=== PATIENT | female | born 1975 | race Caucasian/White ===

== ENCOUNTER 2017-06-21 21:49 | Emergency (ER) | payer MEDICAID ==
[2017-06-21 21:49] VITALS: BMI 36.4
[2017-06-21 22:02] VITALS: O2SAT 100
--- NOTE | 2017-06-21 22:06 | ED PDOC ---
HPI: Abdomen Time Seen by Provider: 06/21/17 22:15 Chief Complaint (Nursing): Abdominal Pain Chief Complaint (Provider): Abdominal pain, diarrhea History Per: Patient History/Exam Limitations: no limitations Onset/Duration Of Symptoms: Days (since friday) Outside of [place] travel?: No Current Symptoms Are (Timing): Still Present Severity: Moderate Location Of Pain/Discomfort: Diffuse Quality Of Discomfort: Cramping Associated Symptoms: Diarrhea. denies: Fever, Chills Exacerbating Factors: Food Last Bowel Movement: Today Additional History Per: Patient Additional Complaint(s): 41 y/o female with history of Type 2 diabetes presenting with complaints of abdominal pain since Friday, vomited on once, did not see her PCP because she thought it was just something viral but then between yesterday and today she has been having diarrhea every 30minutes. states she has not taken her medications since . had some bread this morning and mashed plantains in an attempt to stop the diarrhea but had another episode immediately after eating it. denies any associated fever, chills, dizziness, headaches. Abnormal Vaginal Bleeding: No Past Medical History Vital Signs: Last Vital Signs Temp 98.4 F 06/21/17 21:58 Pulse 102 H 06/21/17 21:58 Resp 22 06/21/17 21:58 BP 140/85 06/21/17 21:58 Pulse Ox 100 06/21/17 23:56 - Medical History PMH: Arthritis, Diabetes Denies: Chronic Kidney Disease - Family History Family History: States: Unknown Family Hx - Home Medications Home Medications: Ambulatory Orders Medication Instructions Recorded Metformin HCl 1,000 mg PO BID 01/17/15 Acetaminophen [Tylenol Extra 1,000 mg PO Q8H PRN 04/10/16 Strength] Clindamycin [Cleocin] 300 mg PO Q8H 04/10/16 Ergocalciferol (Vitamin D2) 50,000 unit PO QWK 04/10/16 [Vitamin D2] Glipizide [Glipizide Xl] 10 mg PO DAILY 04/10/16 Linagliptin [Tradjenta] 5 mg PO DAILY 04/10/16 Lysine 1 tab PO DAILY 04/10/16 Melatonin 5 mg PO HS 04/10/16 Vitamin A 1 cap PO DAILY 04/10/16 Zinc Sulfate [Orazinc] 1 cap PO DAILY 04/10/16 Cyclobenzaprine [Cyclobenzaprine 10 mg PO TID #18 tab 09/06/16 HCl] Lidocaine 5% [Lidoderm] 1 patch TD DAILY #10 patch 09/06/16 traMADol [Ultram] 50 mg PO QID #16 tab 09/06/16 Dicyclomine [Bentyl] 20 mg PO Q12 PRN #20 tab 06/22/17 - Allergies Allergies/Adverse Reactions: Allergies Allergy/AdvReac Type Severity Reaction Status Date / Time ibuprofen [From Advil] Allergy VOMITING Verified 06/21/17 22:02 Penicillins Allergy SHORTNESS Verified 09/06/16 11:33 OF BREATH Review of Systems ROS Statement: Except As Marked, All Systems Reviewed And Found Negative Physical Exam - Reviewed Vital Signs Reviewed: Yes - Physical Exam Appears: Positive for: Well, Non-toxic, No Acute Distress Head Exam: Positive for: NORMOCEPHALIC Skin: Positive for: Normal Color, Dry Eye Exam: Positive for: Normal appearance, EOMI, PERRL Cardiovascular/Chest: Positive for: Regular Rate, Rhythm, Chest Non Tender. Negative for: Edema, Murmur Respiratory: Positive for: Normal Breath Sounds. Negative for: Decreased Breath Sounds, Accessory Muscle Use, Wheezing Gastrointestinal/Abdominal: Positive for: Bowel Sounds, Soft, Tenderness ( tenderness mainly in RUQ and epigastric region ) Extremity: Positive for: Normal ROM. Negative for: Tenderness, Pedal Edema, Calf Tenderness Neurologic/Psych: Positive for: Alert, bobbin fixer II-XII, Oriented - Laboratory Results Result Diagrams: 06/21/17 23:10 06/21/17 22:30 Urine dip results: Positive for: Blood, Protein. Negative for: Leukocyte Esterase, Nitrate, Ketones, Glucose, Bilirubin - ECG O2 Sat by Pulse Oximetry: 100 - Progress ED Course And Treament: ekg, cbc, cmp,lipase IVF, bentyl RUQ ultrasound Re-evaluation Time: 12:40 Condition: Improved Medical Decision Making Medical Decision Making: urine -negative ultrasound negative labs unremarkable will d/c home with symptomatic treatment Disposition - Clinical Impression Clinical Impression: Gastroenteritis - Patient ED Disposition Is Patient to be Admitted: No - Disposition Disposition: Routine/Home Disposition Time: 01:20 Condition: STABLE Prescriptions: Dicyclomine [Bentyl] 20 mg PO Q12 PRN #20 tab PRN Reason: abdominal pain/diarrhea Instructions: Gastroenteritis (ED) Forms: [facility] ([place])
[2017-06-21] MEDS ORDERED: Sodium Chloride 0.9% 1,000 ML IV STA (22:16)
[2017-06-21 22:54] LABS: ALB/GLOB RATIO 1.1 (1.0-2.1); ALKALINE PHOSPHATASE 87 U/L (38-126); ALT/SGPT 53 U/L (9-52); AST/SGOT 36 U/L (14-36); BILIRUBIN,TOTAL 0.4 mg/dl (0.2-1.3); BLOOD UREA NITROGEN 11 mg/dl (7-17); CALCIUM 8.1 mg/dL (8.4-10.2); CARBON DIOXIDE 23 mmol/L (22-30); CHLORIDE 102 mmol/L (98-107); GFR AFRICAN-AMERICAN > 60; GLUCOSE,RANDOM 183 mg/dL (65-105); LIPASE 113 U/L (23-300); POTASSIUM 3.8 MMOL/L (3.6-5.0); SODIUM 136 mmol/l (132-148); TOTAL PROTEIN 7.1 G/DL (6.3-8.2)
[2017-06-21 23:22] LABS: BASO # 0.1 K/uL (0.0-0.2); BASO % 0.7 % (0.0-2.0); EOS # 0.2 K/uL (0.0-0.7); EOS % 1.6 % (0.0-4.0); LYMPH % 26.5 % (20.0-40.0); MEAN CELL VOLUME 83.8 fl (81.0-99.0); MEAN CORPUSCULAR HEMOGLOBIN 27.2 pg (27.0-31.0); MEAN CORPUSCULAR HGB CONC 32.5 g/dL (33.0-37.0); MEAN PLATELET VOLUME 10.3 fl (7.2-11.7); MONO # 1.2 K/uL (0.0-0.8); MONO % 10.8 % (0.0-10.0); NEUT # 6.9 K/uL (1.8-7.0); NEUT % 60.4 % (50.0-75.0); RED CELL DISTRIBUTION WIDTH 14.1 % (11.5-14.5); WHITE BLOOD COUNT 11.3 K/uL (4.8-10.8)
[2017-06-22 00:04] LABS: RBC URINE 10 /hpf (0-3); URINE BACTERIA OCC (<OCC); URINE BILIRUBIN NEGATIVE (NEGATIVE); URINE BLOOD MODERATE (NEGATIVE); URINE COLOR YELLOW (YELLOW); URINE GLUCOSE (UA) NEG (Normal); URINE KETONE NEGATIVE (NEGATIVE); URINE LEUKOCYTE ESTERASE NEG Leu/uL (Negative); URINE PROTEIN NEGATIVE (NEGATIVE); URINE UROBILINOGEN 0.2-1.0 mg/dL (0.2-1.0)
--- NOTE | 2017-06-22 00:46 | US ---
EXAM: US Abdomen Ltd Other EXAM DATE/TIME: 06/21/2017 10:17 PM CLINICAL HISTORY: 41 years old, female; Pain; Abdominal pain; Generalized; Additional info: Ruq pain TECHNIQUE: Real-time ultrasound of the abdomen ltd other with image documentation. COMPARISON: CT - ABD PELVIS W/O PO OR IV CONT 01/10/2016 6:50:36 PM FINDINGS: There is a negative sonographic Hong's sign per soil technologist. No gallstones. No pericholecystic fluid. The gallbladder wall measures 2.8 mm which is within normal limits. The common bile duct measures 4.5 mm which is within normal limits. The liver is normal. The visualized pancreas is normal. No right hydronephrosis. The right kidney measures 10 cm in length. The visualized portions of the aorta are non-aneurysmal. IMPRESSION: No acute findings.
[2017-06-22 01:25] VITALS: BP 139/81; PULSE 82; RESP 18; TEMP 98.2
--- NOTE | 2017-06-23 11:04 | CARD ---
APPROVED REPORT EKG Measurement Heart [id number] <Conclusion> Normal sinus rhythm Normal ECG
== END 2017-06-22 01:35 | disposition home or self-care (01) ==
LOC: H.ER 21:49
DX: K52.9 Noninfective gastroenteritis and colitis, unspecified (principal); E11.9 Type 2 diabetes mellitus without complications; Z88.0 Allergy status to penicillin
CPT/HCPCS: 76705; 80053; 81003; 81025; 83690; 85025; 93005; 99283; J7040

== ENCOUNTER 2017-07-16 12:41 | Observation (INO) | payer MEDICAID ==
[2017-07-16 12:41] VITALS: BMI 36.4
[2017-07-16 13:02] VITALS: RESP 16; TEMP 98; O2SAT 100
[2017-07-16] MEDS ORDERED: Iohexol 240 (50 ml) PO ONE (13:21)
[2017-07-16] MEDS ORDERED: Sodium Chloride 0.9% 1,000 ML IV STA (13:23)
[2017-07-16 13:43] LABS: BASO % 0.3 % (0.0-2.0); EOS # 0.1 K/uL (0.0-0.7); EOS % 0.7 % (0.0-4.0); HEMATOCRIT 37.4 % (34.0-47.0); LYMPH # 2.4 K/uL (1.0-4.3); MEAN CELL VOLUME 83.3 fl (81.0-99.0); MEAN CORPUSCULAR HEMOGLOBIN 26.8 pg (27.0-31.0); MEAN CORPUSCULAR HGB CONC 32.2 g/dL (33.0-37.0); MEAN PLATELET VOLUME 7.8 fl (7.2-11.7); MONO # 1.2 K/uL (0.0-0.8); MONO % 9.3 % (0.0-10.0); NEUT # 9.5 K/uL (1.8-7.0); NEUT % 71.7 % (50.0-75.0); NRBC % 0.1 % (0.0-0.0); RED CELL DISTRIBUTION WIDTH 14.2 % (11.5-14.5); WHITE BLOOD COUNT 13.2 K/uL (4.8-10.8)
[2017-07-16 13:52] LABS: ALB/GLOB RATIO 1.2 (1.0-2.1); ALKALINE PHOSPHATASE 144 U/L (38-126); ALT/SGPT 42 U/L (9-52); AST/SGOT 35 U/L (14-36); BILIRUBIN,TOTAL 0.3 mg/dl (0.2-1.3); BLOOD UREA NITROGEN 12 mg/dl (7-17); CALCIUM 8.4 mg/dL (8.4-10.2); CARBON DIOXIDE 24 mmol/L (22-30); CHLORIDE 102 mmol/L (98-107); GFR AFRICAN-AMERICAN > 60; GLUCOSE,RANDOM 111 mg/dL (65-105); LIPASE 116 U/L (23-300); SODIUM 139 mmol/l (132-148); TOTAL PROTEIN 7.3 G/DL (6.3-8.2)
[2017-07-16 13:54] LABS: POTASSIUM 4.2 MMOL/L (3.6-5.0)
[2017-07-16] MEDS ORDERED: Iohexol 240 (50 ml) ONE (14:03)
[2017-07-16 14:12] LABS: RBC URINE 37 /hpf (0-3); URINE BACTERIA OCC (<OCC); URINE BILIRUBIN NEGATIVE (NEGATIVE); URINE BLOOD LARGE (NEGATIVE); URINE COLOR YELLOW (YELLOW); URINE GLUCOSE (UA) NEG (Normal); URINE KETONE NEGATIVE (NEGATIVE); URINE LEUKOCYTE ESTERASE SMALL Leu/uL (Negative); URINE PROTEIN 100 mg/dL (NEGATIVE); URINE UROBILINOGEN 0.2-1.0 mg/dL (0.2-1.0); WBC URINE 19 /hpf (0-5)
--- NOTE | 2017-07-16 14:47 | ED PDOC ---
HPI: General Adult Time Seen by Provider: 07/16/17 13:07 Chief Complaint (Nursing): Abdominal Pain History Per: Patient Additional Complaint(s): Pt. states for the past 5 weeks she's had constant non-bloody watery diarrhea. States stools have been dark in color. Further states that initially had vomiting which then resolved up until yesterday. Also states she was seen in ED on 06/21/17 and had blood work done and was dc'd with jose. She f/u with Dr. Brantley yesterday who prescribed her Flagyl which she has yet to take. Denies fever, recent travel, hematemesis, BRBPR, sick contacts, previous surgery, hx of GI bleed, weakness. Past Medical History Reviewed: Historical Data, Nursing Documentation, Vital Signs Vital Signs: Last Vital Signs Temp 98.0 F 07/16/17 12:59 Pulse 105 H 07/16/17 12:59 Resp 16 07/16/17 12:59 BP 122/79 07/16/17 12:59 Pulse Ox 100 07/16/17 15:54 - Medical History PMH: Arthritis, Diabetes, Gastritis Denies: Chronic Kidney Disease Other PMH: ovarian cyst - Family History Family History: States: No Known Family Hx - Home Medications Home Medications: Ambulatory Orders Medication Instructions Recorded Metformin HCl 1,000 mg PO BID 01/17/15 Acetaminophen [Tylenol Extra 1,000 mg PO Q8H PRN 04/10/16 Strength] Clindamycin [Cleocin] 300 mg PO Q8H 04/10/16 Ergocalciferol (Vitamin D2) 50,000 unit PO QWK 04/10/16 [Vitamin D2] Glipizide [Glipizide Xl] 10 mg PO DAILY 04/10/16 Linagliptin [Tradjenta] 5 mg PO DAILY 04/10/16 Lysine 1 tab PO DAILY 04/10/16 Melatonin 5 mg PO HS 04/10/16 Vitamin A 1 cap PO DAILY 04/10/16 Zinc Sulfate [Orazinc] 1 cap PO DAILY 04/10/16 Cyclobenzaprine [Cyclobenzaprine 10 mg PO TID #18 tab 09/06/16 HCl] Lidocaine 5% [Lidoderm] 1 patch TD DAILY #10 patch 09/06/16 traMADol [Ultram] 50 mg PO QID #16 tab 09/06/16 Dicyclomine [Bentyl] 20 mg PO Q12 PRN #20 tab 06/22/17 - Allergies Allergies/Adverse Reactions: Allergies Allergy/AdvReac Type Severity Reaction Status Date / Time ibuprofen [From Advil] Allergy VOMITING Verified 07/16/17 12:59 Penicillins Allergy SHORTNESS Verified 07/16/17 12:59 OF BREATH Review of Systems ROS Statement: Except As Marked, All Systems Reviewed And Found Negative Gastrointestinal: Positive for: Nausea, Vomiting, Abdominal Pain, Diarrhea, Melena Physical Exam - Reviewed Nursing Documentation Reviewed: Yes Vital Signs Reviewed: Yes - Physical Exam Appears: Positive for: Well, Non-toxic, No Acute Distress Head Exam: Positive for: ATRAUMATIC, NORMAL INSPECTION, NORMOCEPHALIC Skin: Positive for: Normal Color, Warm. Negative for: Rash Eye Exam: Positive for: EOMI, Normal appearance, PERRL ENT: Positive for: Normal ENT Inspection Neck: Positive for: Normal, Painless ROM Cardiovascular/Chest: Positive for: Regular Rate, Rhythm Respiratory: Positive for: CNT, Normal Breath Sounds Gastrointestinal/Abdominal: Positive for: Normal Exam, Bowel Sounds, Soft, Tenderness (mild epgiastric tenderness) Back: Positive for: Normal Inspection. Negative for: L CVA Tenderness, R CVA Tenderness Rectal: Positive for: Normal Exam, Rectal Tone Is: (intact), Stool Is Heme: ( negative), Other (Suyapa Ortega RN present as bottom scrubber). Negative for: Black Stool, Blood Streaked Stool Extremity: Positive for: Normal ROM Neurologic/Psych: Positive for: Alert, Oriented - Laboratory Results Result Diagrams: 07/16/17 13:38 07/16/17 13:38 - ECG O2 Sat by Pulse Oximetry: 100 ED OBSERVATION Discharge: Yes Date of observation admission: 07/16/17 Time of observation admission: 13:22 - Observation admission statement Patient is being placed in observation because:: abdominal pain, diarrhea - Progress Note Progress Note: 07/16/17 14:[address] abd/pelvis ordered. 07/16/17 16:15 Pt. in no distress. Reports symptoms are still present but have improved. 07/16/17 18:20 CT abd/pelvis: 1.9 cm probable right ovarian cyst. Prominent sub cm mesenteric lymph nodes, nonspecific On re-evaluation, pt. reports improvement in symptoms. Informed of results. Will give Cipro for UTI. F/U with GI. Disposition - Clinical Impression Clinical Impression: Mesenteric adenitis, UTI (urinary tract infection), Diarrhea - Patient ED Disposition Is Patient to be Admitted: No - Disposition Disposition: Routine/Home Disposition Time: 18:25 Condition: STABLE
[2017-07-16] MEDS ORDERED: Sodium Chloride 0.9% 50 ML IV ONE (16:56)
[2017-07-16] MEDS ORDERED: Iohexol 300 100 ML IJ ONE (16:56)
--- NOTE | 2017-07-16 17:53 | CT ---
PROCEDURE: CT Abdomen and Pelvis with oral and IV contrast. HISTORY: diarrhea x 5 weeks, epigastric pain COMPARISON: Limited abdominal ultrasound performed 06/21/17, CT abdomen and pelvis without contrast performed 01/10/16. TECHNIQUE: Contiguous axial images of the abdomen and pelvis. Oral and IV contrast was administered. Coronal and Sagittal reformats generated and reviewed. Contrast dose: 95 mL Omnipaque 300 Radiation dose: Total exam DLP = 1026.26 MGy-cm. This CT exam was performed using one or more of the following dose reduction techniques: Automated exposure control, adjustment of the mA and/or kV according to patient size, and/or use of iterative reconstruction technique. FINDINGS: LOWER THORAX: No visible consolidation, pleural effusion, or pneumothorax. LIVER: Unremarkable. GALLBLADDER AND BILE DUCTS: Unremarkable. PANCREAS: Unremarkable. SPLEEN: Unremarkable. ADRENALS: Unremarkable. KIDNEYS AND URETERS: The kidneys enhance symmetrically. No hydronephrosis or obstructing renal calculus. BLADDER: Mildly thick-walled urinary bladder, likely exaggerated by underdistention. REPRODUCTIVE: Uterus is present. 1.9 cm probable right ovarian cyst. APPENDIX: The appendix appears within normal limits of caliber. No secondary signs of acute appendicitis. BOWEL: The stomach is nondistended. The bowel loops appear within normal limits of caliber without evidence of intestinal obstruction. PERITONEUM: No significant free fluid. No definite free air. LYMPH NODES: Prominent sub cm mesenteric lymph nodes, nonspecific. VASCULATURE: No aortic aneurysm. BONES: Postsurgical changes of the lumbar spine. Degenerative changes. Scoliosis. OTHER FINDINGS: None. IMPRESSION: 1.9 cm probable right ovarian cyst. Pelvic ultrasound may be considered if indicated. Prominent sub cm mesenteric lymph nodes, nonspecific. Correlate clinically for possibility of mesenteric adenitis. Additional incidental findings as above.
[2017-07-16 18:42] VITALS: BP 120/72; PULSE 88
== END 2017-07-16 18:42 | disposition home or self-care (01) ==
LOC: H.ER 12:41 → H.EROBSV 13:22
PROVIDERS: ADMIT Emergency Medicine; ATTEND Emergency Medicine
DX: I88.0 Nonspecific mesenteric lymphadenitis (principal); N39.0 Urinary tract infection, site not specified; R19.7 Diarrhea, unspecified; E11.9 Type 2 diabetes mellitus without complications; M19.90 Unspecified osteoarthritis, unspecified site; K29.70 Gastritis, unspecified, without bleeding; N83.209 Unspecified ovarian cyst, unspecified side; Z88.0 Allergy status to penicillin; Z79.84 Long term (current) use of oral hypoglycemic drugs
CPT/HCPCS: 74177; 80053; 81003; 81025; 83690; 85025; 87040; 87086; 96361; 96374; 96375; 99282; G0378; J2405; J7040; Q9966; Q9967

== ENCOUNTER 2018-02-13 13:45 | Emergency (ER) | payer MEDICAID ==
[2018-02-13 13:46] VITALS: BMI 36.4
[2018-02-13 13:52] VITALS: BP 118/76; PULSE 82; RESP 18; TEMP 98; O2SAT 96
--- NOTE | 2018-02-13 14:33 | ED PDOC ---
Lower Extremity Pain/Injury Time Seen by Provider: 02/13/18 13:53 Chief Complaint (Nursing): Headache Chief Complaint (Provider): lower extremity pain History Per: Patient History/Exam Limitations: no limitations Onset/Duration Of Symptoms: Persistent (x6 days) Current Symptoms Are (Timing): Still Present Additional Complaint(s): 42 year old female with medical history of diabetes and anemia, presents to the emergency department with a complaint of persistent left leg pain associated with right ankle cramping radiating to her right calf ongoing for 6 days. Patient states she has been experiencing urine frequency, dysuria, right-sided flank pain and a gradual onset of headache for 1 week, in which, she was diagnosed with a UTI at an Urgent Care in [place]. She further reports being prescribed Cipro and Pyridium but stopped taking both medications on 02/08/18 when she developed bilateral leg pain. She denies any fever, chills, head injury , abdominal pain, nausea, vomiting, shortness of breath, chest pain, palpitations, hemoptysis, history of DVT or PE. Of note, patient reports traveling by car for a duration of 1 1/2 hours to and from [place]. PMD: Raymundo Brantley MD Past Medical History Reviewed: Historical Data, Nursing Documentation, Vital Signs Vital Signs: Last Vital Signs Temp 98 F 02/13/18 13:49 Pulse 82 02/13/18 13:49 Resp 18 02/13/18 13:49 BP 118/76 02/13/18 13:49 Pulse Ox 96 02/13/18 13:49 - Medical History PMH: Anemia, Arthritis, Diabetes, Gastritis Denies: Chronic Kidney Disease - Family History Family History: States: Unknown Family Hx - Social History Current smoker - smoking cessation education provided: No Ex-Smoker (has not smoked in the last 12 months): Yes Alcohol: None Drugs: Denies - Home Medications Home Medications: Ambulatory Orders Medication Instructions Recorded Metformin HCl 1,000 mg PO BID 01/17/15 Acetaminophen [Tylenol Extra 1,000 mg PO Q8H PRN 04/10/16 Strength] Clindamycin [Cleocin] 300 mg PO Q8H 04/10/16 Ergocalciferol (Vitamin D2) 50,000 unit PO QWK 04/10/16 [Vitamin D2] Glipizide [Glipizide Xl] 10 mg PO DAILY 04/10/16 Linagliptin [Tradjenta] 5 mg PO DAILY 04/10/16 Lysine 1 tab PO DAILY 04/10/16 Melatonin 5 mg PO HS 04/10/16 Vitamin A 1 cap PO DAILY 04/10/16 Zinc Sulfate [Orazinc] 1 cap PO DAILY 04/10/16 Cyclobenzaprine [Cyclobenzaprine 10 mg PO TID #18 tab 09/06/16 HCl] Lidocaine 5% [Lidoderm] 1 patch TD DAILY #10 patch 09/06/16 traMADol [Ultram] 50 mg PO QID #16 tab 09/06/16 Dicyclomine [Bentyl] 20 mg PO Q12 PRN #20 tab 06/22/17 Atropine/Diphenoxylate [Lonox 2 tab PO Q8 PRN #20 tab 07/16/17 0.025 MG-2.5 MG] Ciprofloxacin [Cipro] 1 tab PO BID #14 tab 07/16/17 Fluconazole [Diflucan] 150 mg PO ONCE #1 tab 07/16/17 Fluconazole [Diflucan] 150 mg PO ONCE #1 tab 02/13/18 Nitrofurantoin Macrocrystals 100 mg PO BID #14 cap 02/13/18 [Macrobid] - Allergies Allergies/Adverse Reactions: Allergies Allergy/AdvReac Type Severity Reaction Status Date / Time ibuprofen [From Advil] Allergy VOMITING Verified 02/13/18 13:49 Penicillins Allergy SHORTNESS Verified 02/13/18 13:49 OF BREATH Review of Systems ROS Statement: Except As Marked, All Systems Reviewed And Found Negative Constitutional: Negative for: Fever, Chills Cardiovascular: Negative for: Chest Pain, Palpitations Respiratory: Negative for: Shortness of Breath, Hemoptysis Gastrointestinal: Negative for: Nausea, Vomiting, Abdominal Pain Genitourinary Female: Positive for: Dysuria, Frequency Musculoskeletal: Positive for: Back Pain (right flank), Leg Pain (right calf "cramping"), Foot Pain (right ankle) Neurological: Positive for: Headache. Negative for: Other (head injury) Physical Exam - Reviewed Nursing Documentation Reviewed: Yes Vital Signs Reviewed: Yes - Physical Exam Appears: Positive for: Non-toxic, No Acute Distress Head Exam: Positive for: ATRAUMATIC, NORMAL INSPECTION, NORMOCEPHALIC Skin: Positive for: Normal Color. Negative for: Rash Neck: Positive for: Normal, Painless ROM, Supple Cardiovascular/Chest: Positive for: Regular Rate, Rhythm. Negative for: Murmur Respiratory: Positive for: Normal Breath Sounds. Negative for: Decreased Breath Sounds, Wheezing, Respiratory Distress Pulses-Dorsalis Pedis (L): 2+ Pulses-Dorsalis Pedis (R): 2+ Gastrointestinal/Abdominal: Positive for: Normal Exam, Soft. Negative for: Tenderness Back: Positive for: R CVA Tenderness. Negative for: L CVA Tenderness Extremity: Positive for: Normal ROM (all joints of LE actively), Capillary Refill (<2 seconds bilaterally of LE). Negative for: Tenderness (achilles tendon bilaterally), Calf Tenderness (bilaterally), Swelling (achilles tendon bilaterally), Other ((-)Maryjo's or Ch's sign bilaterally) Neurologic/Psych: Positive for: Alert (x3), Oriented, Gait (steady, unassisted) . Negative for: Motor/Sensory Deficits - Laboratory Results Result Diagrams: 02/13/18 14:15 02/13/18 14:15 Urine POC: Negative - ECG O2 Sat by Pulse Oximetry: 96 (RA) Pulse Ox Interpretation: Normal Medical Decision Making Medical Decision Making: Initial Impression: Right-sided flank pain; UTI; B/L leg pain Initial Plan: * CT ABD/pelvis without contrast * CMP * CPK * Magnesium * Urine * CBC * Pepcid 20mg IVP * Toradol 30mg IVP * Blood culture * Urine C&S * UA * US duplex LE Time: 1449 --CT ABD/pelvis FINDINGS: LOWER THORAX: Unremarkable. LIVER: Unremarkable. No gross lesion or ductal dilatation. GALLBLADDER AND BILE DUCTS: Unremarkable. PANCREAS: Unremarkable. No gross lesion or ductal dilatation. SPLEEN: Unremarkable. ADRENALS: Unremarkable. No mass. KIDNEYS AND URETERS: 4 mm nonobstructive left lower pole calculus. No hydronephrosis. No solid mass. VASCULATURE: Unremarkable. No aortic aneurysm. BOWEL: Unremarkable. No obstruction. No gross mural thickening. APPENDIX: Unremarkable. Normal appendix. PERITONEUM: Unremarkable. No free fluid. No free air. LYMPH NODES: Unremarkable. No enlarged lymph nodes. BLADDER: Unremarkable. REPRODUCTIVE: Unremarkable. BONES: Thoracolumbar levoscoliosis, centered at L2 with unilateral right Farley wade. No acute fracture. OTHER FINDINGS: None. IMPRESSION: 4 mm nonobstructive left lower pole renal calculus. No obstructive uropathy or evidence of recently passed genitourinary calculus. Time: 1536 --US duplex LE FINDINGS: COMMON FEMORAL VEIN: Right CFV: Unremarkable. Left CFV: Unremarkable. SUPERFICIAL FEMORAL VEIN: Right SFV: Unremarkable. Left SFV: Unremarkable. POPLITEAL VEIN: Right Popliteal: Unremarkable. Left Popliteal: Unremarkable. POSTERIOR TIBIAL VEIN: Right PTV: Unremarkable. Left PTV: Unremarkable. OTHER FINDINGS: Nonspecific echogenic 1.5 x 1.0 x 1.3 cm avascular structure in the proximal/ mid left thigh subcutaneous fat. IMPRESSION: No evidence of deep venous thrombosis. Nonspecific echogenic 1.5 x 1.0 x 1.3 cm avascular structure in the proximal/ mid left thigh subcutaneous fat. 1555 On re-evaluation, pt. in no distress. Reports headache has improved along with pain in her legs. No CVA tenderness b/l. Informed of results and states she has no pain on her L side. Reports that she does see a urologist (does not remember name) q3 years because she has chronic blood in her urine. Has had cystoscopies in the past which were normal. Told that kidney stone is unlikely causing her pain as it is on the opposite side of her pain. Advised pt. to f/u with urologist for kidney stone. Pt. will be treated with Macrobid despite no nitrates or leuks in urine as she recently took Cipro and Pyridium and has DM. Agrees with plan. Scribe Attestation: Documented by Judy Dejesus, acting as a scribe for Hood Kee PA-C. Provider Scribe Attestation: All medical record entries made by the Scribe were at my direction and personally dictated by me. I have reviewed the chart and agree that the record accurately reflects my personal performance of the history, physical exam, medical decision making, and the department course for this patient. I have also personally directed, reviewed, and agree with the discharge instructions and disposition. Disposition - Clinical Impression Clinical Impression: Bilateral lower extremity pain, Low back pain - Patient ED Disposition Is Patient to be Admitted: No - Disposition Referrals: [facility] [Outside] Rakesh Moreno MD [Staff Provider] - Raymundo Brantley MD [Family Provider] - Disposition: Routine/Home Disposition Time: 16:02 Condition: IMPROVED Additional Instructions: Follow up Dr. Brantley or your urologist for further evaluation. Return to ED immediately if symptoms worsen. Prescriptions: Fluconazole [Diflucan] 150 mg PO ONCE #1 tab Nitrofurantoin Macrocrystals [Macrobid] 100 mg PO BID #14 cap Instructions: Low Back Pain in Adults, Urinary Tract Infection, Adult (DC) Forms: [facility] ([place]ux[place]ish) Print Language: KYRGYZ
--- NOTE | 2018-02-13 14:51 | CT ---
PROCEDURE: CT Abdomen and Pelvis without intravenous contrast HISTORY: R sided flank pain, UTI COMPARISON: None. TECHNIQUE: Contiguous images were obtained from the domes of the diaphragms to the upper thighs without the administration of intravenous contrast. Oral contrast was not administered. Radiation dose: Total exam DLP = 920.8 mGy-cm. This CT exam was performed using one or more of the following dose reduction techniques: Automated exposure control, adjustment of the mA and/or kV according to patient size, and/or use of iterative reconstruction technique. FINDINGS: LOWER THORAX: Unremarkable. LIVER: Unremarkable. No gross lesion or ductal dilatation. GALLBLADDER AND BILE DUCTS: Unremarkable. PANCREAS: Unremarkable. No gross lesion or ductal dilatation. SPLEEN: Unremarkable. ADRENALS: Unremarkable. No mass. KIDNEYS AND URETERS: 4 mm nonobstructive left lower pole calculus. No hydronephrosis. No solid mass. VASCULATURE: Unremarkable. No aortic aneurysm. BOWEL: Unremarkable. No obstruction. No gross mural thickening. APPENDIX: Unremarkable. Normal appendix. PERITONEUM: Unremarkable. No free fluid. No free air. LYMPH NODES: Unremarkable. No enlarged lymph nodes. BLADDER: Unremarkable. REPRODUCTIVE: Unremarkable. BONES: Thoracolumbar levoscoliosis, centered at L2 with unilateral right Farley wade. No acute fracture. OTHER FINDINGS: None. IMPRESSION: 4 mm nonobstructive left lower pole renal calculus. No obstructive uropathy or evidence of recently passed genitourinary calculus.
[2018-02-13 15:30] LABS: BASO % 0.3 % (0.0-2.0); EOS # 0.1 K/uL (0.0-0.7); EOS % 1.3 % (0.0-4.0); HEMOGLOBIN 11.8 g/dL (12.0-16.0); LYMPH # 2.2 K/uL (1.0-4.3); LYMPH % 23.5 % (20.0-40.0); MEAN CORPUSCULAR HEMOGLOBIN 29.6 pg (27.0-31.0); MEAN CORPUSCULAR HGB CONC 33.7 g/dL (33.0-37.0); MEAN PLATELET VOLUME 7.7 fl (7.2-11.7); MONO # 0.8 K/uL (0.0-0.8); MONO % 8.2 % (0.0-10.0); NEUT # 6.2 K/uL (1.8-7.0); NEUT % 66.7 % (50.0-75.0); NRBC % 0.1 % (0.0-0.0); RED CELL DISTRIBUTION WIDTH 14.8 % (11.5-14.5); WHITE BLOOD COUNT 9.3 K/uL (4.8-10.8)
[2018-02-13 15:33] LABS: MEAN CELL VOLUME 88.1 fl (81.0-99.0)
--- NOTE | 2018-02-13 15:37 | US ---
PROCEDURE: Bilateral lower extremity venous duplex Doppler. HISTORY: b/l lower leg pain COMPARISON: None available. TECHNIQUE: Bilateral common femoral, superficial femoral, popliteal and posterior tibial veins were evaluated. Flow was assessed with color Doppler, compressibility, assessment of phasic flow and augmentation response. FINDINGS: COMMON FEMORAL VEIN: Right CFV: Unremarkable. Left CFV: Unremarkable. SUPERFICIAL FEMORAL VEIN: Right SFV: Unremarkable. Left SFV: Unremarkable. POPLITEAL VEIN: Right Popliteal: Unremarkable. Left Popliteal: Unremarkable. POSTERIOR TIBIAL VEIN: Right PTV: Unremarkable. Left PTV: Unremarkable. OTHER FINDINGS: Nonspecific echogenic 1.5 x 1.0 x 1.3 cm avascular structure in the proximal/mid left thigh subcutaneous fat. IMPRESSION: No evidence of deep venous thrombosis. Nonspecific echogenic 1.5 x 1.0 x 1.3 cm avascular structure in the proximal/mid left thigh subcutaneous fat.
[2018-02-13 15:39] LABS: SQUAMOUS EPITHIAL 4 /hpf (0-5); URINE BACTERIA RARE (<OCC); URINE BILIRUBIN NEGATIVE (NEGATIVE); URINE BLOOD LARGE (NEGATIVE); URINE CLARITY SLIGHTY-CLOUDY (Clear); URINE COLOR YELLOW (YELLOW); URINE GLUCOSE (UA) 50 mg/dL (Normal); URINE LEUKOCYTE ESTERASE NEG Leu/uL (Negative); URINE PROTEIN 100 mg/dL (NEGATIVE); URINE UROBILINOGEN 0.2-1.0 mg/dL (0.2-1.0)
[2018-02-13 15:45] LABS: ALBUMIN 3.7 g/dL (3.5-5.0); ALT/SGPT 28 U/L (9-52); AST/SGOT 22 U/L (14-36); BLOOD UREA NITROGEN 21 mg/dl (7-17); CALCIUM 8.4 mg/dL (8.4-10.2); GFR AFRICAN-AMERICAN > 60; GFR NON-AFRICAN AMERICAN 55
== END 2018-02-13 16:15 | disposition home or self-care (01) ==
LOC: H.ER 13:45
DX: M54.5 Low back pain (principal); M79.605 Pain in left leg; M79.604 Pain in right leg; E11.9 Type 2 diabetes mellitus without complications; Z79.84 Long term (current) use of oral hypoglycemic drugs; Z87.891 Personal history of nicotine dependence; Z88.0 Allergy status to penicillin; Z88.6 Allergy status to analgesic agent
CPT/HCPCS: 74176; 80053; 81003; 81025; 82550; 83735; 85025; 87040; 87086; 93970; 96374; 96375; 99285; J1885

== ENCOUNTER 2018-06-11 12:42 | Emergency (ER) | payer MEDICAID ==
[2018-06-11 12:42] VITALS: BMI 36.4
[2018-06-11 12:49] VITALS: BP 156/96; PULSE 88; RESP 16; TEMP 98; O2SAT 100
[2018-06-11] MEDS ORDERED: Sodium Chloride 0.9% 1,000 ML IV STA ×2 (13:29→16:45)
--- NOTE | 2018-06-11 13:40 | ED PDOC ---
HPI: Back Time Seen by Provider: 06/11/18 12:52 Chief Complaint (Nursing): Back Pain Chief Complaint (Provider): Back Pain History Per: Patient History/Exam Limitations: no limitations Onset/Duration Of Symptoms: Hrs (x11) Current Symptoms Are (Timing): Still Present Severity: Moderate Additional Complaint(s): 42 y/o female with a PMHx of DM presents to the ED complaining of constant left sided back pain associated with nausea and non-bloody vomiting, onset at 2 AM. Patient reports of taking Tylenol for symptoms with no relief. Denies fever, chest pain, shortness of breath, abdominal pain, constipation, diarrhea and genitourinary symptoms. PMD: Raymundo Brantley Past Medical History Reviewed: Historical Data, Nursing Documentation, Vital Signs Vital Signs: Last Vital Signs Temp 98.0 F 06/11/18 12:47 Pulse 88 06/11/18 12:47 Resp 16 06/11/18 12:47 BP 156/96 H 06/11/18 12:47 Pulse Ox 100 06/11/18 12:47 - Medical History PMH: Anemia, Arthritis, Diabetes, Gastritis Denies: Chronic Kidney Disease - Surgical History Surgical History: No Surg Hx - Family History Family History: States: Unknown Family Hx - Social History Current smoker - smoking cessation education provided: No Alcohol: None Drugs: Denies - Home Medications Home Medications: Ambulatory Orders Medication Instructions Recorded Metformin HCl 1,000 mg PO BID 01/17/15 Acetaminophen [Tylenol Extra 1,000 mg PO Q8H PRN 04/10/16 Strength] Clindamycin [Cleocin] 300 mg PO Q8H 04/10/16 Ergocalciferol (Vitamin D2) 50,000 unit PO QWK 04/10/16 [Vitamin D2] Glipizide [Glipizide Xl] 10 mg PO DAILY 04/10/16 Linagliptin [Tradjenta] 5 mg PO DAILY 04/10/16 Lysine 1 tab PO DAILY 04/10/16 Melatonin 5 mg PO HS 04/10/16 Vitamin A 1 cap PO DAILY 04/10/16 Zinc Sulfate [Orazinc] 1 cap PO DAILY 04/10/16 Cyclobenzaprine [Cyclobenzaprine 10 mg PO TID #18 tab 09/06/16 HCl] Lidocaine 5% [Lidoderm] 1 patch TD DAILY #10 patch 09/06/16 traMADol [Ultram] 50 mg PO QID #16 tab 09/06/16 Dicyclomine [Bentyl] 20 mg PO Q12 PRN #20 tab 06/22/17 Atropine/Diphenoxylate [Lonox 2 tab PO Q8 PRN #20 tab 07/16/17 0.025 MG-2.5 MG] Ciprofloxacin [Cipro] 1 tab PO BID #14 tab 07/16/17 Fluconazole [Diflucan] 150 mg PO ONCE #1 tab 07/16/17 Fluconazole [Diflucan] 150 mg PO ONCE #1 tab 02/13/18 Nitrofurantoin Macrocrystals 100 mg PO BID #14 cap 02/13/18 [Macrobid] Ciprofloxacin [Cipro] 500 mg PO BID #10 tab 06/11/18 Tamsulosin [Flomax] 0.4 mg PO DAILY #14 cap 06/11/18 oxyCODONE/Acetaminophen [Percocet 1 tab PO Q6H PRN #15 tab 06/11/18 5/325 mg Tab] - Allergies Allergies/Adverse Reactions: Allergies Allergy/AdvReac Type Severity Reaction Status Date / Time ibuprofen [From Advil] Allergy VOMITING Verified 06/11/18 12:47 Penicillins Allergy SHORTNESS Verified 06/11/18 12:47 OF BREATH Review of Systems ROS Statement: Except As Marked, All Systems Reviewed And Found Negative Cardiovascular: Negative for: Chest Pain Respiratory: Negative for: Shortness of Breath Gastrointestinal: Positive for: Nausea, Vomiting (non-bloody). Negative for: Abdominal Pain, Diarrhea, Constipation Genitourinary Female: Negative for: Dysuria, Frequency, Hematuria Musculoskeletal: Positive for: Back Pain (left sided) Physical Exam - Reviewed Nursing Documentation Reviewed: Yes Vital Signs Reviewed: Yes - Physical Exam Appears: Positive for: In Acute Distress (Moderate painful distress) Head Exam: Positive for: ATRAUMATIC, NORMOCEPHALIC Skin: Positive for: Normal Color, Warm, Dry Eye Exam: Positive for: Normal appearance, EOMI, PERRL Neck: Positive for: Normal, Painless ROM Cardiovascular/Chest: Positive for: Regular Rate, Rhythm. Negative for: Murmur Respiratory: Positive for: Normal Breath Sounds. Negative for: Respiratory Distress Gastrointestinal/Abdominal: Positive for: Normal Exam, Soft, Tenderness ( suprapubic tenderness). Negative for: Guarding, Rebound Back: Positive for: Normal Inspection, Other (Left flank tenderness) Extremity: Positive for: Normal ROM. Negative for: Deformity Neurologic/Psych: Positive for: Alert, Oriented. Negative for: Motor/Sensory Deficits - Laboratory Results Result Diagrams: 06/11/18 13:50 06/11/18 13:50 - ECG O2 Sat by Pulse Oximetry: 100 (RA) Pulse Ox Interpretation: Normal - Physician Consult Information Time Consulting Physican Contacted: 18:32 Physician Contacted: Raymundo Brantley Outcome Of Conversation: Case discussed, can follow-up in office, Dr. Gonzalez for Urology. Medical Decision Making Medical Decision Making: Time: 1332 Plan: -- CT Abd/Pelvis w/o PO & IV contrast -- EKG -- CMP -- ED Urine -- ED Urine Dipstick -- CBC with differentials -- Morphine 2 mg IV -- Sodium Chloride IV 1000 mls/hr -- Zofran Inj 4 mg IV -- Glucose, Blood, POC -- Urinalysis Time: 1537 CT RESULTS FINDINGS: LOWER THORAX: The visualized lungs are clear. LIVER: Normal in size. No intrahepatic ductal dilatation. GALLBLADDER AND BILE DUCTS: No calcified gallstones. No biliary dilatation PANCREAS: Normal in size. No ductal dilatation. SPLEEN: Normal in size. ADRENALS: Normal in size. No discrete nodule. KIDNEYS AND URETERS: The right kidney is normal in size without nephrolithiasis or hydronephrosis. There is interval migration of left lower pole stone injury ureteral with a 4 mm obstructing stone at the left UP junction with mild hydronephrosis, edema and enlargement of the left kidney and significant perinephric inflammatory changes. The ureters are not dilated. VASCULATURE: No aortic aneurysm. BOWEL: The proximal small bowel loops are normal in caliber. There is mild dilatation of distal small bowel loops with fecalization of small bowel contents. There is moderate amount of stool in the ascending and transverse colon. APPENDIX: Normal appendix. PERITONEUM: No free fluid. No free air. LYMPH NODES: No enlarged lymph nodes. BLADDER: Well distended and grossly normal in appearance. REPRODUCTIVE: The uterus is normal in size BONES: No acute fracture. Mild levoscoliosis in the lumbar spine. OTHER FINDINGS: None. IMPRESSION: 1. Mild left obstructive uropathy resulting from a 4 mm stone at the UP junction. 2. Constipation and chronic stasis in the distal small bowel loops with mild bowel dilatation. Time: 1645 Plan: -- Sodium Chloride IV 1000 mls/hr -- Ciprofloxacin 400 mg in 200 ml IV Scribe Attestation: Documented by Kady Perez acting as a scribe for Dr. Jennifer Machado MD. Provider Scribe Attestation: All medical record entries made by the Scribe were at my direction and personally dictated by me. I have reviewed the chart and agree that the record accurately reflects my personal performance of the history, physical exam, medical decision making, and the department course for this patient. I have also personally directed, reviewed, and agree with the discharge instructions and disposition. Disposition - Clinical Impression Clinical Impression: UTI (urinary tract infection), Ureteral calculus - Disposition Referrals: Raymundo Brantley MD [Family Provider] - Leda Gonzalez MD [Medical Doctor] - Disposition: Routine/Home Disposition Time: 18:33 Condition: IMPROVED Prescriptions: Ciprofloxacin [Cipro] 500 mg PO BID #10 tab oxyCODONE/Acetaminophen [Percocet 5/325 mg Tab] 1 tab PO Q6H PRN #15 tab PRN Reason: Pain, Severe (8-10) Tamsulosin [Flomax] 0.4 mg PO DAILY #14 cap Instructions: Urinary Tract Infections in Adults, Renal Colic, Kidney Stones in Adults Forms: [facility] ([place])
[2018-06-11 14:30] LABS: SQUAMOUS EPITHIAL 31 /hpf (0-5); URINE BACTERIA RARE (<OCC); URINE BILIRUBIN NEGATIVE (NEGATIVE); URINE BLOOD LARGE (NEGATIVE); URINE CLARITY CLOUDY (Clear); URINE COLOR YELLOW (YELLOW); URINE GLUCOSE (UA) >=500 mg/dL (Normal); URINE LEUKOCYTE ESTERASE SMALL Leu/uL (Negative); URINE PROTEIN 100 mg/dL (NEGATIVE); URINE UROBILINOGEN 0.2-1.0 mg/dL (0.2-1.0)
[2018-06-11 14:30] LABS: ALB/GLOB RATIO 1.1 (1.0-2.1); ALBUMIN 4.4 g/dL (3.5-5.0); BASO # 0.1 K/uL (0.0-0.2); BASO % 0.4 % (0.0-2.0); CALCIUM 9.2 mg/dL (8.4-10.2); EOS % 0.1 % (0.0-4.0); HEMOGLOBIN 12.3 g/dL (12.0-16.0); LYMPH # 2.1 K/uL (1.0-4.3); LYMPH % 14.5 % (20.0-40.0); MEAN CORPUSCULAR HEMOGLOBIN 28.4 pg (27.0-31.0); MEAN CORPUSCULAR HGB CONC 32.3 g/dL (33.0-37.0); MEAN PLATELET VOLUME 8.2 fl (7.2-11.7); MONO # 1.4 K/uL (0.0-0.8); MONO % 9.8 % (0.0-10.0); NEUT # 10.7 K/uL (1.8-7.0); NEUT % 75.2 % (50.0-75.0); RBC 4.32 Mil/uL (3.80-5.20); RED CELL DISTRIBUTION WIDTH 14.8 % (11.5-14.5); WHITE BLOOD COUNT 14.3 K/uL (4.8-10.8)
--- NOTE | 2018-06-11 16:12 | CT ---
Date of service: 06/11/2018 PROCEDURE: CT Abdomen and Pelvis without intravenous contrast HISTORY: Left flank pain COMPARISON: 02/13/2018. TECHNIQUE: CT scan of the abdomen and pelvis was performed without administration of intravenous contrast. Oral contrast was not administered. Coronal and sagittal reformatted images were obtained. . Radiation dose: Total exam DLP = 799.60 mGy-cm. This CT exam was performed using one or more of the following dose reduction techniques: Automated exposure control, adjustment of the mA and/or kV according to patient size, and/or use of iterative reconstruction technique. FINDINGS: LOWER THORAX: The visualized lungs are clear. LIVER: Normal in size. No intrahepatic ductal dilatation. GALLBLADDER AND BILE DUCTS: No calcified gallstones. No biliary dilatation PANCREAS: Normal in size. No ductal dilatation. SPLEEN: Normal in size. ADRENALS: Normal in size. No discrete nodule. KIDNEYS AND URETERS: The right kidney is normal in size without nephrolithiasis or hydronephrosis. There is interval migration of left lower pole stone injury ureteral with a 4 mm obstructing stone at the left UP junction with mild hydronephrosis, edema and enlargement of the left kidney and significant perinephric inflammatory changes. The ureters are not dilated. VASCULATURE: No aortic aneurysm. BOWEL: The proximal small bowel loops are normal in caliber. There is mild dilatation of distal small bowel loops with fecalization of small bowel contents. There is moderate amount of stool in the ascending and transverse colon. APPENDIX: Normal appendix. PERITONEUM: No free fluid. No free air. LYMPH NODES: No enlarged lymph nodes. BLADDER: Well distended and grossly normal in appearance. REPRODUCTIVE: The uterus is normal in size BONES: No acute fracture. Mild levoscoliosis in the lumbar spine. OTHER FINDINGS: None. IMPRESSION: 1. Mild left obstructive uropathy resulting from a 4 mm stone at the UP junction. 2. Constipation and chronic stasis in the distal small bowel loops with mild bowel dilatation.
[2018-06-11] MEDS ORDERED: Ciprofloxacin 400mg/200ml D5W 400 MG/200 ML BAG IV STA (16:46)
[2018-06-11] MEDS ORDERED: cefTRIAXone (Rocephin) 1 gm Inj ONE (16:47)
[2018-06-11] MEDS ORDERED: Ciprofloxacin 400mg/200ml D5W 400 MG/200 ML BAG IVPB ONE (16:48)
[2018-06-11] MEDS ORDERED: Oxycodone/Acetaminophen 5/325 mg Tab PO STA (18:42)
[2018-06-11] MEDS ORDERED: Oxycodone/Acetaminophen 5/325 mg Tab ONE (18:50)
--- NOTE | 2018-06-11 18:50 | CARD ---
APPROVED REPORT Date of service: 06/11/2018 <Conclusion> Normal sinus rhythm Minimal voltage criteria for LVH, may be normal variant Borderline ECG
[2018-06-11] MEDS ORDERED: Fluconazole 150 MG TAB PO ONE (19:00)
== END 2018-06-11 19:02 | disposition home or self-care (01) ==
LOC: H.ER 12:42
DX: N39.0 Urinary tract infection, site not specified (principal); N20.1 Calculus of ureter; E11.9 Type 2 diabetes mellitus without complications; Z79.84 Long term (current) use of oral hypoglycemic drugs; Z88.0 Allergy status to penicillin; Z88.6 Allergy status to analgesic agent
CPT/HCPCS: 74176; 80053; 81003; 81025; 82948; 85025; 93005; 96361; 96365; 96375; 96376; 99283; J0744; J2270; J2405; J7030